=== PATIENT | male | born 1940 | race Caucasian/White ===

== ENCOUNTER → 2017-06-20 | Outpatient (CLI) | payer OTHER, BC | LOC: BMCIMAGING 10:11 | PROVIDERS: ATTEND Physician Assistant | DX: M16.12 Unilateral primary osteoarthritis, left hip (principal) ==

== ENCOUNTER → 2017-07-01 | Outpatient (CLI) | payer OTHER, BC | LOC: BMCIMAGING 08:17 | PROVIDERS: ATTEND Orthopaedic Surgery Hand Surgery | DX: M16.12 Unilateral primary osteoarthritis, left hip (principal) ==

== ENCOUNTER → 2017-07-09 | Outpatient (CLI) | payer OTHER, BC | LOC: BMCIMAGING 15:11 | PROVIDERS: ATTEND Orthopaedic Surgery Hand Surgery | PROC: 3E0U4GC Introduction of Other Therapeutic Substance into Joints, Percutaneous Endoscopic Approach (ICD-10-PCS; principal; 2017-07-09) | DX: M25.552 Pain in left hip (principal) ==

== ENCOUNTER → 2017-07-15 | Outpatient (CLI) | payer OTHER, BC | LOC: BMCIMAGING 10:23 | PROVIDERS: ATTEND Orthopaedic Surgery Hand Surgery | PROC: BQ11YZZ Fluoroscopy of Left Hip using Other Contrast (ICD-10-PCS; principal; 2017-07-15) | DX: M25.552 Pain in left hip (principal) ==

== ENCOUNTER → 2018-02-19 | Outpatient (CLI) | payer OTHER, BC | LOC: FIMAGING 12:03 | PROVIDERS: ATTEND Orthopaedic Surgery | DX: Z01.818 Encounter for other preprocedural examination (principal); M16.12 Unilateral primary osteoarthritis, left hip; M51.36 Other intervertebral disc degeneration, lumbar region ==

== ENCOUNTER 2018-03-10 06:02 | Inpatient (IN) | payer OTHER, BC ==
--- NOTE | 2018-03-10 05:59 | POSTANESTH ---
Post Anesthetic Evaluation Cardiovascular Status: Normal, Stable Respiratory Status: Normal, Stable Level of Consciousness/Mental Status: Can Participate in Eval, Mildly Sleepy, Arousable Pain Control: Adequate, Prn Tx Ordered Nausea/Vomiting Control: Adequate, Prn Tx Ordered Complications Possibly Related to Anesthesia: None Noted
[~2018-03-10 06:02] MED LIST: ROPIVACAINE 0.2% 80 MG, EPINEPHrine 0.2 MG, KETOROLAC TROMETHAMINE 30 MG, morphINE 10 M... IU ONE; TRANEXAMIC ACID 1,000 MG in NS 100 ML IV ONE
--- NOTE | 2018-03-10 06:03 | PDANEPAE ---
ANE History of Present Illness 77 yo male with L hip OA for LIZETH. ANE Past Medical History - Cardiovascular History Hx Hypertension: No Hx Arrhythmias: No Hx Chest Pain: No Hx Coronary Artery / Peripheral Vascular Disease: No Hx CHF / Valvular Disease: No Hx Palpitations: No Cardiovascular History Comment: h/o hyperlipidemia - labs from 2018 show low/ normal cholesterol levels - Pulmonary History Hx COPD: No Hx Asthma/Reactive Airway Disease: No Hx Recent Upper Respiratory Infection: No Hx Oxygen in Use at Home: No Hx Sleep Apnea: No Sleep Apnea Screening Result - Last Documented: Negative - Neurologic History Hx Cerebrovascular Accident: No Hx Seizures: No Hx Dementia: No - Endocrine History Hx Diabetes: No Hypothyroid: No Hyperthyroid: No Obesity: no - Renal History Hx Renal Disorders: No - Liver History Hx Hepatic Disorders: No - Neurological & Psychiatric Hx Hx Neurological and Psychiatric Disorders: Yes Neurological / Psychiatric History Comment: bilateral hearing loss - Cancer History Hx Cancer: No - Congenital Disorder History Hx Congenital Disorders: No - GI History Hx Gastrointestinal Disorders: No Gastrointestinal History Comment: NEG - Chronic Pain History Chronic Pain: Yes (L HIP, PRATIMA KNEES) - Surgical History Prior Surgeries: ANKLE SURG R. DENTAL SURG - PERIODONTIC ANE Review of Systems Review of Systems: - Exercise capacity METS (RN): 4 METS - Systems Constitutional: Reports: no symptoms Muscolosketal: Reports: joint pain ANE Patient History - Allergies Allergies/Adverse Reactions: No Known Allergies Allergy (Verified 02/04/18 09:26) - Home Medications Home Medications: Multivitamins [Multivitamin (*)] 1 each PO DAILY 02/29/16 [Last Taken 03/07/18] [place]-3 Fatty Acids [Fish Oil 1000 mg (*)] 1,000 mg PO DAILY 02/29/16 [Last Taken 03/07/18] Ascorbic Acid [Vitamin C 500 mg (*)] 500 mg PO DAILY 02/04/18 [Last Taken ] Cholecalciferol Vit D3 [Vitamin D3 2000 units tab (OTC)] 2,000 units PO DAILY [Last Taken 03/09/18] Herbals/Supplements -Info Only 1 ea PO DAILY 02/04/18 [Last Taken 03/09/18] Tears/Dextran 70/Hypromellose [Natural Balance Tears (*)] 1 drop EACHEYE DAILY PRN 02/04/18 [Last Taken 03/05/18] - NPO status NPO Since - Liquids (Time): 03:00 (sugar water) - Anes Hx Anes Hx: no prior problems - Smoking Hx Smoking Status: Former smoker Marijuana use: No - Alcohol Use Alcohol Use: Occasionally (3/week) - Family Anes Hx Family Anes Hx: neg - N/A Family Hx Anesthesia Complications: NEG ANE Labs/Vital Signs - Labs - CBC HGB: 14 HCT: 43 Platelet Count: 269 - Vital Signs Vital Signs: reviewed preoperatively; see RN documention for details Height: 187.96 cm Weight: 95.254 kg ANE Physical Exam - Airway Neck exam: FROM Mallampati Score: Class 2 Mouth exam: normal dental/mouth exam - Pulmonary Pulmonary: clear to auscultation - Cardiovascular Cardiovascular: regular rate and rhythym - ASA Status ASA Status: II ANE Anesthesia Plan Anesthesia Plan: spinal
--- NOTE | 2018-03-10 06:07 | PDHPUP ---
History & Physical Update H&P update statement: This history and physical update is based on an assessment of the patient which was completed after admission or registration (within 24 hours), but prior to the surgery/procedure. H&P update: no change in patient's condition since H&P completed
--- NOTE | 2018-03-10 06:08 | PDIAF ---
- Diagnosis Diagnosis: left hip djd Code Status: Full Code - Medication Management Discharge Medications: Medications to Continue on Transfer Multivitamins [Multivitamin (*)] 1 each PO DAILY 02/29/16 [Last Taken 02/28/16 08:00] [place]-3 Fatty Acids [Fish Oil 1000 mg (*)] 1,000 mg PO DAILY 02/29/16 [Last Taken 02/28/16 08:00] Ascorbic Acid [Vitamin C 500 mg (*)] 500 mg PO DAILY 02/04/18 [Last Taken Unknown] Cholecalciferol Vit D3 [Vitamin D3 2000 units tab (OTC)] 2,000 units PO DAILY [Last Taken Unknown] Herbals/Supplements -Info Only 1 ea PO DAILY 02/04/18 [Last Taken Unknown] Tears/Dextran 70/Hypromellose [Natural Balance Tears (*)] 1 drop EACHEYE DAILY PRN 02/04/18 [Last Taken Unknown] Discharge Medications: Refer to the Discharge Home Medication list for PRN reason. - Orders Services needed: Home Care, Physical Therapy Home Care Face to Face: I certify that this patient was under my care and that I had the required [id number] encounter meeting the encounter requirements on the discharge day. My findings support the fact that the patient is homebound as defined in Home Care Face to Face Continued: CMS Chapter 7 Medicare Benefits Manual 30.1.1 , The condition of the patient is such that there exists a normal inability to leave home and consequently, leaving home would require a considerable and taxing effort. Diet Recommendation: no restrictions on diet Diet Texture: Regular Texture Diet Additional Instructions: TOTAL JOINT ARTHROPLASTY DISCHARGE INSTRUCTIONS 1. Your surgeon follows the [facility] protocol for reducing your risk of DVT (blood clots) following surgery. Medication will be ordered to prevent blood clots. A sudden increase in calf pain and/or swelling could indicate a blood clot in your leg. If this occurs, please call your surgeon or his/her web press operator assistant. An ultrasound of the leg may be necessary to diagnose a blood clot. If you have conditions that make you a higher risk for blood clots, your surgeon may use more aggressive ways to prevent them. Notify your surgeon if you think you are a high risk for blood clots. 2. Wear your white surgical stockings (FISH hose) for 2 weeks. This decreases your swelling and may help prevent blood clots. It is ok to remove FISH hose at night time to give your legs a break. 3. Swelling and bruising in the surgical leg is common. If you feel that it is excessive, please notify your surgeon. 4. Elevate your surgical leg with the ankle above the hip several times every day. Please keep the leg straight when you elevate by putting pillows under your foot. Do not put pillows under your knee. This will make being able to fully straighten more difficult. This is uncomfortable, but try to do it as much as possible. 5. For total knee replacements use compressive wrap on your knee for 3-5 days after surgery, then you can discontinue it. 6. Use a walker or crutches for 1-2 weeks. Progress your weight-bearing as tolerated. You may start to use a cane when you feel stable and safe. 7. You will receive physical therapy instructions in the hospital. Continue those exercises at home. There are additional exercises in the total joint booklet you were given before surgery. Outpatient physical therapy will begin 7- 10 days after surgery. Please schedule this in advance. 8. Use ice on your knee at least 3-5 times every day for 30 minutes. This helps reduce pain and swelling. Also use it at night before falling asleep. 9. Leave your surgical dressing in place for 2 weeks. Your dressing is water resistant, but not waterproof. Cover it with Saran Wrap or Fkius-p-Tgar before showering. You may shower as soon as you feel safe entering a shower. If you notice bleeding from your incision 2 or 3 days after surgery, please notify your surgeon. 10. Due to narcotics, decreased activity and altered diet, most patients experience constipation after surgery. Use ecox-pcu-aeyjxzz stool softeners while you are on narcotics. 11. You may drive a car when you are comfortable bearing weight, have good muscular control of your leg and are off narcotics. This usually occurs 2-4 weeks after surgery, depending on which leg was operated on. 12. If there are questions not addressed here, please refer the [facility] book given for more information. If you still have questions, please contact your surgeon s office. 13. If you have a life-threatening emergency, please call 911 and go to the emergency room immediately. For non-life threatening emergencies, please call your physicians office for advice before going to the emergency room. - Follow Up Care Current Providers and Referrals: Junior Saunders MD [Medical Doctor] - Gilberto Shukla MD [Primary Care Provider] -
[2018-03-10] MEDS ORDERED: ceFAZolin 1 GM/5 ML SYR ONE (06:37)
[2018-03-10] MEDS ORDERED: ACETAMINOPHEN 325 MG TAB PO ONE (06:38)
[2018-03-10] MEDS ORDERED: ceFAZolin 2 GM/DEXTROSE 100 ML IV ONE (06:38)
[2018-03-10] MEDS ORDERED: FAMOTIDINE 20 MG TAB PO ONE (06:38)
[2018-03-10] MEDS ORDERED: LR 1,000 ML IV ONE (06:39)
[2018-03-10] MEDS ORDERED: DEXAMETHASONE 4 MG/ML VIAL ONE (08:18)
[2018-03-10] MEDS ORDERED: LIDOCAINE 2% 2 ML INJ ONE (08:18)
[2018-03-10] MEDS ORDERED: BUPIVACAINE/DEXTROSE 7.5MG/ML 2 ML SPINAL AMP SP ONE (08:18)
[2018-03-10] MEDS ORDERED: PROPOFOL/EMULSION 500 MG/50 ML BOTTLE IV ONE (08:19)
[2018-03-10] MEDS ORDERED: PROPOFOL 200 MG/20 ML VIAL ONE (08:19)
[2018-03-10] MEDS ORDERED: fentaNYL 100 MCG/2 ML INJ ONE (08:19)
[2018-03-10] MEDS ORDERED: ePHEDrine SULFATE 25 MG/5 ML SYR ONE (09:08)
[2018-03-10] MEDS ORDERED: NEOSTIGMINE METHYLSULFATE 5 MG/5 ML SYR ONE (09:12)
[2018-03-10] MEDS ORDERED: ALBUTEROL 3 ML DEYVIAL IH PRN (09:38)
[2018-03-10] MEDS ORDERED: ACETAMINOPHEN 500 MG TAB PO PRN (09:38)
[2018-03-10] MEDS ORDERED: NALOXONE HCL 0.4 MG/ML INJ IVP PRN (09:38)
[2018-03-10] MEDS ORDERED: LR 500 ML IV PRN (09:38)
[2018-03-10] MEDS ORDERED: oxyCODONE IR 5 MG TAB PO PRN ×2 (09:38→09:48)
[2018-03-10] MEDS ORDERED: ONDANSETRON 4 MG/2 ML VIAL IVP PRN ×2 (09:38→09:48)
[2018-03-10] MEDS ORDERED: DIAZEPAM 5 MG/ML 1 ML SYR IVP PRN (09:38)
[2018-03-10] MEDS ORDERED: fentaNYL 100 MCG/2 ML INJ IVP PRN (09:38)
[2018-03-10] MEDS ORDERED: BISACODYL 10 MG SUPP PR PRN (09:48)
[2018-03-10] MEDS ORDERED: METOCLOPRAMIDE 10 MG/2 ML VIAL IVP PRN (09:48)
[2018-03-10] MEDS ORDERED: diphenhydrAMINE 25 MG CAP PO PRN (09:48)
[2018-03-10] MEDS ORDERED: LACTULOSE 20 GM/30 ML UDCUP PO PRN (09:48)
[2018-03-10] MEDS ORDERED: MAGNESIUM HYDROXIDE 30 ML UDCUP PO PRN (09:48)
[2018-03-10] MEDS ORDERED: PROMETHAZINE HCL 25 MG SUPPR PR PRN (09:48)
[2018-03-10] MEDS ORDERED: TEMAZEPAM 15 MG CAP PO PRN (09:48)
[2018-03-10] MEDS ORDERED: PROMETHAZINE HCL 25 MG/ML INJ IVP PRN (09:48)
[2018-03-10] MEDS ORDERED: DIPHENOXYLATE/ATROPINE LOMOTIL 1 TAB PO PRN (09:48)
[2018-03-10] MEDS ORDERED: CYCLOBENZAPRINE 10 MG TAB PO PRN (09:48)
[2018-03-10] MEDS ORDERED: ONDANSETRON DISINTEGRATING 4 MG TAB PO PRN (09:48)
[2018-03-10] MEDS ORDERED: POLYETHYLENE GLYCOL 3350 17 GM PKT PO PRN (09:48)
[2018-03-10] MEDS ORDERED: TEARS/DEXTRAN 70/HYPROMELLOSE 15 ML OPHT.BTL EACHEYE PRN (09:49)
--- NOTE | 2018-03-10 09:50 | POSTOPPROG ---
Post Op Note Date of Operation: 03/10/18 Surgeon: Junior Saunders Internal Combustion Engineer: rickie Anesthesiologist: darrick Anesthesia: Spinal Pre-op Diagnosis: left hip djd Post-op Diagnosis: same Indication: same Procedure: left bello Inf/Abcess present in the surg proc area at time of surgery?: No Depth: Deep Incisional (Fascial) EBL: 100-500 Drains: Hemovac
[2018-03-10] MEDS ORDERED: LR 1,000 ML IV SCH (10:00)
--- NOTE | 2018-03-10 13:10 | PDMN ---
Medical Necessity Medical necessity: 77 yo s/p CPT 50737, L LIZETH, MCG S560, [facility] IP Only
[2018-03-10] MEDS: ACETAMINOPHEN 325 MG TAB PO SCH ×3 (13:24→23:03)
[2018-03-10] MEDS: ceFAZolin 2 GM/DEXTROSE 100 ML IV SCH ×2 (13:24→22:53)
[2018-03-10] MEDS: TRANEXAMIC ACID 650 MG TAB PO SCH ×2 (13:25→22:51)
[2018-03-10] MEDS: FAMOTIDINE 20 MG TAB PO SCH (20:01)
[2018-03-10] MEDS: SENNOSIDES/DOCUSATE SODIUM TAB PO SCH (20:01)
[2018-03-10] MEDS: ASPIRIN 325 MG TAB PO SCH (20:01)
[2018-03-11] MEDS: TRANEXAMIC ACID 650 MG TAB PO SCH (06:31)
[2018-03-11 07:32] VITALS: BP 144/81
--- NOTE | 2018-03-11 07:39 | PDIAF ---
- Diagnosis Diagnosis: left hip djd Code Status: Full Code - Medication Management Discharge Medications: Medications to Continue on Transfer Multivitamins [Multivitamin (*)] 1 each PO DAILY 02/29/16 [Last Taken 03/07/18] [place]-3 Fatty Acids [Fish Oil 1000 mg (*)] 1,000 mg PO DAILY 02/29/16 [Last Taken 03/07/18] Ascorbic Acid [Vitamin C 500 mg (*)] 500 mg PO DAILY 02/04/18 [Last Taken ] Cholecalciferol Vit D3 [Vitamin D3 2000 units tab (OTC)] 2,000 units PO DAILY [Last Taken 03/09/18] Herbals/Supplements -Info Only 1 ea PO DAILY 02/04/18 [Last Taken 03/09/18] Tears/Dextran 70/Hypromellose [Natural Balance Tears (*)] 1 drop EACHEYE DAILY PRN 02/04/18 [Last Taken 03/05/18] Aspirin [Aspirin 325 mg (*)] 325 mg PO DAILY tab 03/11/18 [Last Taken Unknown] oxyCODONE IR [Oxycodone Ir (*)] 5 - 10 mg PO Q3HRS PRN #40 tab 03/11/18 [Last Taken Unknown] Discharge Medications: Refer to the Discharge Home Medication list for PRN reason. - Orders Services needed: Home Care, Physical Therapy Home Care Face to Face: I certify that this patient was under my care and that I had the required [id number] encounter meeting the encounter requirements on the discharge day. My findings support the fact that the patient is homebound as defined in Home Care Face to Face Continued: CMS Chapter 7 Medicare Benefits Manual 30.1.1 , The condition of the patient is such that there exists a normal inability to leave home and consequently, leaving home would require a considerable and taxing effort. Diet Recommendation: no restrictions on diet Diet Texture: Regular Texture Diet Additional Instructions: TOTAL JOINT ARTHROPLASTY DISCHARGE INSTRUCTIONS 1. Your surgeon follows the [facility] protocol for reducing your risk of DVT (blood clots) following surgery. Medication will be ordered to prevent blood clots. A sudden increase in calf pain and/or swelling could indicate a blood clot in your leg. If this occurs, please call your surgeon or his/her diploma dental assistant. An ultrasound of the leg may be necessary to diagnose a blood clot. If you have conditions that make you a higher risk for blood clots, your surgeon may use more aggressive ways to prevent them. Notify your surgeon if you think you are a high risk for blood clots. 2. Wear your white surgical stockings (FISH hose) for 2 weeks. This decreases your swelling and may help prevent blood clots. It is ok to remove FISH hose at night time to give your legs a break. 3. Swelling and bruising in the surgical leg is common. If you feel that it is excessive, please notify your surgeon. 4. Elevate your surgical leg with the ankle above the hip several times every day. Please keep the leg straight when you elevate by putting pillows under your foot. Do not put pillows under your knee. This will make being able to fully straighten more difficult. This is uncomfortable, but try to do it as much as possible. 5. For total knee replacements use compressive wrap on your knee for 3-5 days after surgery, then you can discontinue it. 6. Use a walker or crutches for 1-2 weeks. Progress your weight-bearing as tolerated. You may start to use a cane when you feel stable and safe. 7. You will receive physical therapy instructions in the hospital. Continue those exercises at home. There are additional exercises in the total joint booklet you were given before surgery. Outpatient physical therapy will begin 7- 10 days after surgery. Please schedule this in advance. 8. Use ice on your knee at least 3-5 times every day for 30 minutes. This helps reduce pain and swelling. Also use it at night before falling asleep. 9. Leave your surgical dressing in place for 2 weeks. Your dressing is water resistant, but not waterproof. Cover it with Saran Wrap or Mnboq-l-Mtyk before showering. You may shower as soon as you feel safe entering a shower. If you notice bleeding from your incision 2 or 3 days after surgery, please notify your surgeon. 10. Due to narcotics, decreased activity and altered diet, most patients experience constipation after surgery. Use nhuy-oln-rfidefe stool softeners while you are on narcotics. 11. You may drive a car when you are comfortable bearing weight, have good muscular control of your leg and are off narcotics. This usually occurs 2-4 weeks after surgery, depending on which leg was operated on. 12. If there are questions not addressed here, please refer the [facility] book given for more information. If you still have questions, please contact your surgeon s office. 13. If you have a life-threatening emergency, please call 911 and go to the emergency room immediately. For non-life threatening emergencies, please call your physicians office for advice before going to the emergency room. - Follow Up Care Current Providers and Referrals: Junior Saunders MD [Medical Doctor] - Gilberto Shukla MD [Primary Care Provider] -
--- NOTE | 2018-03-11 07:41 | SOAPPROG ---
SOAP Progress Note Assessment/Plan: Assessment: s.p left bello Plan: stable d/c home wbat rom as kerri anterior hip precautions f/u at two weeks 03/11/18 07:39 Subjective: no cp or sob kerri po Objective: Vital Signs Temp Pulse Resp BP Pulse Ox 36.6 C 76 14 144/81 H 97 03/11/18 07:28 03/11/18 07:28 03/11/18 07:28 03/11/18 07:28 03/11/18 07:28 Laboratory Results 03/11/18 04:51 03/10/18 11:50 03/10/18 03/11/18 03/12/18 05:59 05:59 05:59 Intake Total 550 Output Total 1550 Balance -1000 dressing intact intact pf,df,ehl toes warm and [ink neg homans zulema xrays stable anatomic alignment no fx or lucency ICD10 Worksheet Patient Problems: Problems Problem Status Onset Hip arthritis Acute - ICD10 Problem Qualifiers (1) Hip arthritis
[2018-03-11] MEDS: ACETAMINOPHEN 325 MG TAB PO SCH ×2 (07:42→11:45)
[2018-03-11] MEDS: FAMOTIDINE 20 MG TAB PO SCH (08:17)
[2018-03-11] MEDS: SENNOSIDES/DOCUSATE SODIUM TAB PO SCH (08:17)
[2018-03-11] MEDS: ASPIRIN 325 MG TAB PO SCH (08:17)
--- NOTE | 2018-03-11 11:12 | ASMTLACE ---
LACE Length of stay for Answers: 2 days current admission Acuity / Level of Answers: Yes Care: Did the patient have an inpatient admission? Comorbidities - select Answers: Opioid dependence all that apply / Chronic pain Other Notes: HLD # of Emergency department Answers: 0 visits in the last 6 months Score: 10 Date Signed: 03/11/2018 11:11 AM Electronically Signed By:CHADD Hogan
--- NOTE | 2018-03-11 11:13 | ASMTCMCOM ---
CM Note CM Note Notes: Pt s/p LIZETH. PT rec outpatient. Pt medically stable for d/c with [facility] PT. Orders to be obtained via [email or web address]. Pt address/phone verified. Date Signed: 03/11/2018 11:12 AM Electronically Signed By:CHADD Hogan
--- NOTE | 2018-03-11 13:44 | ASDISCHSUM ---
Discharge Information Plan Status:Home with Home Health Medically Cleared to Leave: Discharge Date:03/11/2018 12:59 PM CM D/C Disposition:Home Health Service ADT D/C Disposition:Home Health Service Projected Discharge Date:03/11/2018 11:00 AM Transportation at D/C:Family Discharge Delay Reason: Follow-Up Date:03/11/2018 11:00 AM Discharge Slot: Final Diagnosis: Placement Information Referral Type:*Home Health Care Services Referral ID:[id number] Provider Name:[facility] [address] Address 2: City:[place] Selection Factors: State:[place] Patient Contact Information Contact Name:EMMANUELBALBIRJOSESAGARJAYLEN Relationship: Address:[address] City:[place] Alternate Phone: State/Zip Code:[place] [address] Email: Financial Information Financial Class:Medicare Primary Plan Desc:MEDICARE INPATIENT Primary Plan Number:[id number] Secondary Plan Desc:[place]?[facility] Secondary Plan Number:[id number] Assessment Information LACE LACE Length of stay for Answers: 2 days current admission Acuity / Level of Answers: Yes Care: Did the patient have an inpatient admission? Comorbidities - select Answers: Opioid dependence all that apply / Chronic pain Other Notes: HLD # of Emergency department Answers: 0 visits in the last 6 months Score: 10 Date Signed: 03/11/2018 11:11 AM Electronically Signed By:CHADD Hogan [facility] CM Progress Note CM Note CM Note Notes: Pt s/p LIZETH. PT rec outpatient. Pt medically stable for d/c with [facility] PT. Orders to be obtained via [employer]. Pt address/phone verified. Date Signed: 03/11/2018 11:12 AM Electronically Signed By:CHADD Hogan Intervention Information
== END 2018-03-11 12:59 | disposition home health service (06) | DRG 470 ==
LOC: F3N 06:02
PROVIDERS: ADMIT Orthopaedic Surgery; ATTEND Orthopaedic Surgery
PROC: 0SRB04Z Replacement of Left Hip Joint with Ceramic on Polyethylene Synthetic Substitute, Open Approach (ICD-10-PCS; principal; 2018-03-10 09:00)
DX: M16.12 Unilateral primary osteoarthritis, left hip (principal); E78.5 Hyperlipidemia, unspecified
CPT/HCPCS: 82947-QW; 97116-GP; 97161-GP; 97165-GO; 97530-GP; C1713; G8978-GP-CJ; G8979-GP-CI; G8979-GP-CJ; G8980-GP-CI; G8987-GO-CI; G8988-GO-CI; G8990-GO-CI; J0171; J0690; J1100; J1885; J2270; J2704; J2710; J2795; J3010

== ENCOUNTER → 2018-04-21 | Outpatient (CLI) | payer OTHER, BC | LOC: BMCIMAGING 09:53 | PROVIDERS: ATTEND Physician Assistant | DX: Z47.1 Aftercare following joint replacement surgery (principal); Z96.642 Presence of left artificial hip joint ==

== ENCOUNTER → 2018-05-29 | Outpatient (CLI) | payer OTHER, BC | LOC: BMCIMAGING 09:55 | PROVIDERS: ATTEND Physician Assistant | DX: Z47.1 Aftercare following joint replacement surgery (principal); Z96.642 Presence of left artificial hip joint ==

== ENCOUNTER → 2018-07-14 | Outpatient (CLI) | payer OTHER, BC | LOC: BMCIMAGING 09:44 | PROVIDERS: ATTEND Family Medicine | DX: M17.11 Unilateral primary osteoarthritis, right knee (principal); M25.461 Effusion, right knee; M23.41 Loose body in knee, right knee ==

== ENCOUNTER → 2018-09-09 | Outpatient (CLI) | payer OTHER, BC | LOC: BMCIMAGING 08:26 | PROVIDERS: ATTEND Physician Assistant | DX: M24.852 Other specific joint derangements of left hip, not elsewhere classified (principal); Z96.642 Presence of left artificial hip joint ==